=== PATIENT | female | born 1970 | race Caucasian/White ===

== ENCOUNTER 2017-02-13 15:43 | Observation (INO) ==
[2017-02-13] MEDS ORDERED: Naloxone 0.4 MG/ML INJ IVP PRN (18:20)
[2017-02-13] MEDS ORDERED: Acetaminophen 325 MG TABLET PO PRN (18:20)
--- NOTE | 2017-02-13 18:29 | Internal Med History&Physical ---
Date of Encounter: 02/13/17 Time of Encounter: 18:25 Assessment and Plan (1) Chest pain Current visit: Yes Status: Acute Patient with acute chest pain. For past 2 days. Concerning for angina. Will trend troponins. Plan for cardiac stress test if troponins negative. Observation. Check lipid profile and A1c. Qualifiers: Chest pain type: precordial pain Qualified Code(s): R07.2 - Precordial pain (2) Frequent PVCs Current visit: Yes Status: Acute Patient not on beta contreras. However Heart rate on the lower side of normal. Will consult cardiology for further evaluation and recommendations. (3) Hypertension, essential Current visit: Yes Status: Chronic Continue home medications. Currently controlled (4) Depression Current visit: Yes Status: Chronic Continue Effexor. Qualifiers: Depression Type: unspecified Qualified Code(s): F32.9 - Major depressive disorder, single episode, unspecified (5) Tobacco abuse Current visit: Yes Status: Chronic Patient with chronic tobacco abuse. Does have wheezing on examination today. Will treat with bronchodilators as needed. (6) Congestive heart failure Current visit: Yes Status: Suspected Patient with bilateral lower extremity edema and pedal edema. Will get 2-D echocardiogram. Treat with IV Lasix. No prior diagnosis of CHF patient does have symptoms and chest x-ray findings of condition. Her BNP is low. She may have diastolic dysfunction. Qualifiers: Congestive heart failure type: diastolic Congestive heart failure chronicity: acute on chronic Qualified Code(s): I50.33 - Acute on chronic diastolic (congestive) heart failure (7) CAD (coronary artery disease) Current visit: Yes Status: Chronic Continue aspirin, statin Qualifiers: Coronary Disease-Associated Artery/Lesion type: [place] artery [place] vs. transplanted heart: [place] heart Associated angina: with stable angina Qualified Code(s): I25.118 - Atherosclerotic heart disease of [place] coronary artery with other forms of angina pectoris Internal Medicine - H&P: HPI Chief complaint: Chest pain Admitted From: Emergency Dept Plans for Post Hospital Care: Home History of present illness: Ms. 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 Pain is located in the center part of the chest and she she also feels like she is having frequent PVCs. She does have shortness of breath especially when she lies down. She also has been experiencing increased swelling in her lower extremities. 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 Since then she has been chest pain-free. Presently her chest pain has subsided and in severity and intensity but she feels that it may be coming on intermittently. Patient is also a chronic smoker and experiences some wheezing occasionally but has never been diagnosed with COPD. Past Med Surg Social Fam HX - Past Medical History Attestation: Yes The following information was validated with the patient. Source: patient, old records reviewed Medical history: hyperlipidemia, hypertension Psychiatric history: bipolar, depression - Past Surgical History Surgical History: , cholecystectomy - Social History Smoking Status: Current every day smoker Packs per day: 1.5 Smokeless Tobacco Status: No Alcohol use: none Drug use: none - Family History Mother Living Status: Still Living Hx Family Cardiac Disorders: No Hx Family Respiratory Disorders: No Hx Family Cancer: Yes Hx Family GI Disorders: Yes Hx Family Endocrine Disorder: No Hx Family Neuromuscular Disorders: No Hx Family Neurologic Disorders: No Hx Family HEENT Disorders: No Hx Family Autoimmune Disorders: No Father Living Status: Hx Family Cardiac Disorders: Yes (CABG) Hx Family Respiratory Disorders: No Hx Family Cancer: No Hx Family GI Disorders: No Hx Family Endocrine Disorder: Yes (DM) Hx Family Neuromuscular Disorders: No Hx Family Neurologic Disorders: No Hx Family HEENT Disorders: No Hx Family Autoimmune Disorders: No Internal Medicine - H&P: Meds Aspirin 81 mg PO DAILY 01/22/15 [History] Potassium Chloride [Klor-Con Sprinkle] 10 meq PO TID 01/22/15 [History] Atorvastatin [Lipitor] 40 mg PO HS #90 tablet 05/07/15 [Rx] Chlorthalidone [Chlorthalidone] 1 tab PO DAILY 05/09/15 [History] Lisinopril [Zestril] 10 mg PO DAILY 11/15/15 [History] Magnesium Oxide [Magnesium] 400 mg PO DAILY 11/15/15 [History] Torsemide [Demadex] 20 mg PO BID 11/15/15 [History] Venlafaxine HCl [Venlafaxine HCl ER] 75 mg PO DAILY 11/15/15 [History] 3 Allergy/AdvReac Type Severity Reaction Status Date / Time bupropion [From Wellbutrin] Allergy Hives Verified 02/13/17 13:21 nitrofurantoin Allergy Swelling Verified 02/13/17 13:21 [From Macrobid] of Lip/Tongue/Throat Sulfa (Sulfonamide Allergy Hives Verified 02/13/17 13:21 Antibiotics) All Systems PM: A 10-system review of systems was performed and is negative for pertinent findings except as documented above in the HPI. - Constitutional Constitutional: no chills, no fever(s), no night sweats - EENT Eyes: no change in vision, no discharge, no pain, no photophobia Ears: no ear discharge, no ear pain, no tinnitus Nose, mouth and throat: no dysphagia, no nasal discharge, no neck pain, no sore throat - Cardiovascular Cardiovascular ROS IM: chest pain, orthopnea, no diaphoresis, no dyspnea, no lightheadedness, no palpitations, no syncope - Respiratory Respiratory: dyspnea, wheezing, no cough, no excessive phlegm production - Gastrointestinal Gastrointestinal: no abdominal pain, no diarrhea, no hematemesis, no hematochezia, no melena, no nausea, no vomiting - Genitourinary Genitourinary: no change in urinary stream, no dysuria, no flank pain, no hematuria - Musculoskeletal Musculoskeletal ROS IM: no numbness, no tingling - Integumentary Integumentary IM: no rash, no unusual bruising - Neurological Neurological ROS: no confusion, no convulsions, no focal weakness, no numbness, no tingling, no tremor(s) - Constitutional Vitals: Temp Pulse Resp BP Pulse Ox 97.6 F 58 18 131/68 95 02/13/17 18:05 02/13/17 18:05 02/13/17 18:05 02/13/17 18:05 02/13/17 18:05 General appearance: Present: cooperative, mild distress, A&O X 3, morbidly obese , pleasant, answers questions appropriately - Eye Eye exam: Present: EOMI, PERRL - Neck Neck exam general surgery: Present: supple, trachea midline. Absent: lymphadenopathy - Respiratory Respiratory exam: Present: wheezes (Bilateral). Absent: accessory muscle use, rales, rhonchi - Cardiovascular Cardiovascular exam: Present: RRR, +S1, +S2. Absent: diastolic murmur, gallop, rubs, systolic murmur - GI/Abdominal GI/Abdominal exam: Present: normal bowel sounds, soft, no peritoneal signs. Absent: distended, tenderness - Extremities Exam Extremities exam: Present: pedal edema (Bilateral pitting), warm, radial pulses palpable and symmetrical. Absent: calf tenderness, cyanotic - Neurological Exam Neurological exam: Present: CN II-XII intact, oriented X3, no focal deficits. Absent: facial droop, speech deficit - Skin Skin exam: Present: dry, intact Internal Med - H&P Results - Labs Labs: Sodium 135, potassium 3.8, BNP 19, creatinine 0.77, WBC 6.5, hemoglobin 13.9, troponin 0.01 - EKG Data -: EKG Interpreted by Myself EKG shows normal: sinus rhythm - EKG Data EKG comments: 02/13/17 19:03 Sinus rhythm with PVCs - Impressions Chest x-ray shows mild interstitial edema
[2017-02-13] MEDS: Furosemide 40 MG/4 ML VIAL IVP SCH (22:40)
[2017-02-14 01:03] LABS: Basophils # 0.1 K/mcL (0.0-0.2); Basophils % 0.9 %; Eosinophils # 0.3 K/mcL (0.0-0.6); Eosinophils % 4.2 %; Hematocrit 39.9 % (35.3-44.9); Hemoglobin 13.8 g/dL (11.5-15.4); Immature Granulocytes % 0.1 % (0-4); Lymphocytes # 3.1 K/mcL (0.6-4.6); Lymphocytes % 44.5 %; Mean Corpuscular HGB Conc 34.6 g/dL (31.6-35.5); Mean Corpuscular Hemoglobin 32.4 pg (28.0-33.3); Mean Corpuscular Volume 93.7 fL (83.0-100.0); Mean Platelet Volume 11.5 fL (9.4-12.4); Monocytes # 0.5 K/mcL (0.0-1.3); Monocytes % 6.8 %; Platelet Count 216 K/mcL (140-400); Red Blood Count 4.26 M/mcL (3.82-4.97); Red Cell Distribution Width 13.5 % (11.5-14.5); Segmented Neutrophils % 43.5 %
[2017-02-14 01:17] LABS: BUN/Creatinine Ratio 24 (6-26); Blood Urea Nitrogen 19 mg/dL (7-20); Calcium 9.6 mg/dL (8.6-10.8); Carbon Dioxide 27 mEq/L (19-29); Chloride 99 mEq/L (98-109); Glucose 129 mg/dL (70-99); Osmolality,Calculated 288 (280-300); Potassium 3.7 mEq/L (3.5-4.5); Sodium 137 mEq/L (136-145); eGFR For African Americans > 60 (> 60); eGFR For Non-African Americans > 60 (> 60)
[2017-02-14 01:18] LABS: Chol/HDL Ratio 6.4 (0-4.9)
[2017-02-14 01:29] LABS: Hemoglobin A1C 5.4 %
[2017-02-14] MEDS ORDERED: Regadenoson 0.4 MG/5 ML SYRINGE IVP ONE (06:07)
[2017-02-14] MEDS ORDERED: Perflutren Lipid Microsphere 1.3 ML in 0.9 % Sodium Chloride 8.7 ML IVP ONE (07:09)
[2017-02-14] MEDS ORDERED: CHLORTHALIDONE PO SCH (09:00)
[2017-02-14] MEDS ORDERED: Venlafaxine XR (24 HR) 75 MG CAP.ER.24H PO SCH (09:00)
[2017-02-14] MEDS ORDERED: Magnesium Oxide 400 MG TABLET PO SCH (09:00)
[2017-02-14] MEDS ORDERED: Aspirin 81 MG TAB.CHEW PO SCH (09:00)
--- NOTE | 2017-02-14 09:41 | Cardiology Consult Note ---
Date of Encounter: 02/14/17 Time of Encounter: 09:31 Assessment and Plan (1) Chest pain Status: Acute Atypical chest pain, intermittent unlikely ischemic Substernal pain at rest, short-lived, intermittent x 2days [facility] 2016 demonstrated no disease in coronary arteries Patient is currently managed appropriately for chronic disease EKGs demonstrate frequent PVCs Recommend workup as outpatient with possible holter monitor Cardiology will sign off at this time. Please call for any further questions or recommendations Qualifiers: Chest pain type: unspecified Qualified Code(s): R07.9 - Chest pain, unspecified (2) Frequent PVCs Status: Chronic (3) Congestive heart failure Status: Acute Qualifiers: Congestive heart failure type: diastolic Congestive heart failure chronicity: acute on chronic Qualified Code(s): I50.33 - Acute on chronic diastolic (congestive) heart failure Discussion w patient/family: The assessment and plan as outlined above was discussed with the patient and/or family members who expressed understanding and agreement. All questions were answered. Thank you for involving us in the care of your patient. Please call with any questions. History of Present Illness Consult date: 02/13/17 Requesting physician: Bailey Woodson Consult reason: Frequent PVCs Chief complaint: Chest pain with palpitations History of present illness: Ms. Siegel is a 46 year old female with history or COPD BRETT, LAD Fistula s/p coiling 2005 who presented to [place] ED for chest pain with palpitations of 2 days duration. She describes the chest pain as dull and intermittent, generally lasting a few minutes and then resolving. The pain is associated with palpitations, nausea, shortness of breath, and feelings of lightheadedness. It is not exacerbated by anything, nor is it relieved by anything. She says that she's been experiencing the palpitations intermittently for about 1 month, which has also been associated with orthopnea and PND. She was seen about one month ago at an emergency room where she was told that she had PVCs in a bigeminy pattern. Finally, she states that she has increased swelling in her legs, however it has been worse on the Left for the past month as well. There is no calf pain associated with her leg swelling. She denies fever, chills, sweats, syncope. Significantly, she does admit to drinking two cups of coffee per day and several cans of soda or tea, and she also smokes 1.5ppd. In the ED her EKG showed NSR with frequent PVCs. Troponins negative x 2, CXR shows mild interstitial edema with cardiomegaly. She had a LHC in 2016 that demonstrated no CAD, however it did show an LAD fistula which was subsequently closed via coil at [facility]. Past Med Surg Social Fam HX - Past Medical History Medical history: hyperlipidemia, hypertension Psychiatric history: bipolar, depression - Past Surgical History Surgical History: , cholecystectomy - Social History Smoking Status: Current every day smoker Packs per day: 1.5 Smokeless Tobacco Status: No Alcohol use: none Drug use: none - Family History Mother Living Status: Still Living Hx Family Cardiac Disorders: No Hx Family Respiratory Disorders: No Hx Family Cancer: Yes Hx Family GI Disorders: Yes Hx Family Endocrine Disorder: No Hx Family Neuromuscular Disorders: No Hx Family Neurologic Disorders: No Hx Family HEENT Disorders: No Hx Family Autoimmune Disorders: No Father Living Status: Hx Family Cardiac Disorders: Yes (CABG) Hx Family Respiratory Disorders: No Hx Family Cancer: No Hx Family GI Disorders: No Hx Family Endocrine Disorder: Yes (DM) Hx Family Neuromuscular Disorders: No Hx Family Neurologic Disorders: No Hx Family HEENT Disorders: No Hx Family Autoimmune Disorders: No Medications and Allergies Aspirin 81 mg PO DAILY 01/22/15 [History] Potassium Chloride [Klor-Con Sprinkle] 10 meq PO TID 01/22/15 [History] Atorvastatin [Lipitor] 40 mg PO HS #90 tablet 05/07/15 [Rx] Chlorthalidone 1 tab PO DAILY 05/09/15 [History] Magnesium Oxide [Magnesium] 400 mg PO DAILY 11/15/15 [History] Torsemide [Demadex] 20 mg PO DAILY 11/15/15 [History] Venlafaxine HCl [Venlafaxine HCl ER] 75 mg PO DAILY 11/15/15 [History] Buspirone HCl [Buspar] 10 mg PO BID 02/13/17 [History] Fluticasone Propionate Nasal [Flonase] 2 spr NS DAILY 02/13/17 [History] Lisinopril [Zestril] 40 mg PO DAILY 02/13/17 [History] Metoprolol XL (24 HR) Succ [Toprol Xl] 100 mg PO DAILY 02/13/17 [History] Ondansetron [Zofran] 8 mg PO TID PRN 02/13/17 [History] cloNIDine HCl [CloNIDine HCl] 0.1 mg PO TID 02/13/17 [History] 3 Allergy/AdvReac Type Severity Reaction Status Date / Time bupropion [From Wellbutrin] Allergy Hives Verified 02/13/17 13:21 nitrofurantoin Allergy Swelling Verified 02/13/17 13:21 [From Macrobid] of Lip/Tongue/Throat Sulfa (Sulfonamide Allergy Hives Verified 02/13/17 13:21 Antibiotics) - Constitutional Constitutional: fatigue, stops breathing during sleep, no anorexia, no chills, no daytime sleepiness, no fever(s), no frequent falls, no night sweats, no weakness, no weight gain - EENT Eyes: no blurred vision, no loss of vision - Cardiovascular Cardiovascular: as per HPI, chest pain at rest, dyspnea at rest, radiating jaw, neck or arm pain, leg edema, lightheadedness, orthopnea, palpitations, paroxysmal nocturnal dyspnea, rapid heart rate, no chest pain with exertion, no diaphoresis, no irregular heart rhythm, no syncope - Respiratory Respiratory: cough, dyspnea - Gastrointestinal Gastrointestinal: nausea, no abdominal pain, no constipation, no diarrhea - Genitourinary Genitourinary: no dysuria - Musculoskeletal Musculoskeletal: no abnormal gait, no muscle weakness - Neurological Neurological: no dizziness, no focal weakness, no numbness, no syncope - Psychiatric Psychiatric: anxiety, depression Physical Examination General: Conversant, No Apparent Distress, Other (Morbidly obese) HEENT: Atraumatic, Normocephaly, Mucus Membranes Moist Neck: No JVD, Normal carotid pulses Cardiac: Reg Rate and Rhythm, Normal S1 and S2, No Murmur Lungs: Normal Breath Sounds, No Wheeze, Rales, Rhonchi Neuro: Alert and responsive, No focal deficits noted Abdomen: Soft, Non-Tender Skin: No rashes noted on visualized skin Musculoskeletal: No Chest Wall Tenderness Extremities: No Clubbing, No Cyanosis, Normal Pulses, Other (+1 LE Edema b/l) Results 02/14/17 00:40 02/14/17 00:40 Lab Results 02/13/17 02/14/17 02/14/17 18:54 00:40 00:40 WBC 6.9 Hgb 13.8 Hct 39.9 Plt Count 216 Sodium Potassium Chloride Carbon Dioxide BUN Creatinine Glucose Calcium Troponin I 0.01 0.01 02/14/17 00:40 WBC Hgb Hct Plt Count Sodium 137 Potassium 3.7 Chloride 99 Carbon Dioxide 27 BUN 19 Creatinine 0.78 Glucose 129 H Calcium 9.6 Troponin I - Imaging and Cardiology Chest Xray: report reviewed, image reviewed Echo: pending Cardiac cath: report reviewed - EKG Interpretation EKG results cardiology: personally reviewed, sinus rhythm, other (Frequent PVCs) Consult Discharge Plan - Plan Instructions: Heart Failure (DC), Chest Pain (DC), Chronic Hypertension (DC) Additional Instructions: Follow up with cardiology as scheduled Referrals: Virginia Tena CNP [Primary Care Provider] - 02/20/17 1:00 pm (in 1 week)
[2017-02-14] MEDS: Furosemide 40 MG/4 ML VIAL IVP SCH (09:58)
[2017-02-14 11:25] VITALS: BP 126/60
--- NOTE | 2017-02-14 11:59 | Discharge Summary ---
Date of Encounter: 02/14/17 Time of Encounter: 09:45 - Discharge Diagnosis (1) Chest pain Priority: Primary Status: Resolved Qualifiers: Chest pain type: precordial pain Qualified Code(s): R07.2 - Precordial pain (2) Congestive heart failure Priority: Secondary Status: Acute Qualifiers: Congestive heart failure type: diastolic Congestive heart failure chronicity: acute on chronic Qualified Code(s): I50.33 - Acute on chronic diastolic (congestive) heart failure (3) Frequent PVCs Priority: Secondary Status: Chronic (4) Hypertension, essential Priority: Secondary Status: Chronic (5) Depression Priority: Secondary Status: Chronic Qualifiers: Depression Type: unspecified Qualified Code(s): F32.9 - Major depressive disorder, single episode, unspecified (6) Tobacco abuse Priority: Secondary Status: Chronic (7) CAD (coronary artery disease) Priority: Secondary Status: Chronic Qualifiers: Coronary Disease-Associated Artery/Lesion type: [place] artery [place] vs. transplanted heart: [place] heart Associated angina: with stable angina Qualified Code(s): I25.118 - Atherosclerotic heart disease of [place] coronary artery with other forms of angina pectoris - Discharge Medications Home Medications: Aspirin 81 mg PO DAILY 01/22/15 [History] Potassium Chloride [Klor-Con Sprinkle] 10 meq PO TID 01/22/15 [History] Atorvastatin [Lipitor] 40 mg PO HS #90 tablet 05/07/15 [Rx] Chlorthalidone 1 tab PO DAILY 05/09/15 [History] Magnesium Oxide [Magnesium] 400 mg PO DAILY 11/15/15 [History] Torsemide [Demadex] 20 mg PO DAILY 11/15/15 [History] Venlafaxine HCl [Venlafaxine HCl ER] 75 mg PO DAILY 11/15/15 [History] Buspirone HCl [Buspar] 10 mg PO BID 02/13/17 [History] Fluticasone Propionate Nasal [Flonase] 2 spr NS DAILY 02/13/17 [History] Lisinopril [Zestril] 40 mg PO DAILY 02/13/17 [History] Metoprolol XL (24 HR) Succ [Toprol Xl] 100 mg PO DAILY 02/13/17 [History] Ondansetron [Zofran] 8 mg PO TID PRN 02/13/17 [History] cloNIDine HCl [CloNIDine HCl] 0.1 mg PO TID 02/13/17 [History] Allergies/Adverse Reactions: 3 Allergy/AdvReac Type Severity Reaction Status Date / Time bupropion [From Wellbutrin] Allergy Hives Verified 02/13/17 13:21 nitrofurantoin Allergy Swelling Verified 02/13/17 13:21 [From Macrobid] of Lip/Tongue/Throat Sulfa (Sulfonamide Allergy Hives Verified 02/13/17 13:21 Antibiotics) Procedures/tests Complete & Pending: Procedures Performed prior 72 hours Category Date Time Status EV echocardiogram w enhance Routine Y 02/14/17 19:13 Completed Date of admission: 02/13/17 17:53 Primary care physician: Virginia Tena CNP Consults: 02/13/17 19:17 Consult to Cardiology [CONS] Routine Comment: Consulting Provider: Ryan Altman Reason for Consult: Frequent PVCs; sent by Joe Hart for chest pain Call Completed: No Discharging clinician: Bailey Woodson Anticipated date of discharge: 02/14/17 - Patient Status Disposition: Home, Self-Care Condition: Good Functional capacity at discharge: independent ambulation Overall status at discharge: patient is progressing back to baseline - Discharge Instructions Instructions: Heart Failure (DC), Chest Pain (DC), Chronic Hypertension (DC) Follow Up With: Virginia Tena CNP [Primary Care Provider] - 02/20/17 1:00 pm (in 1 week) Additional Instructions: Follow up with cardiology as scheduled - Diet and Activity Activity: increase activity as tolerated Diet: low fat, low cholesterol, low salt diet Hospital course: Ms. Siegel is a 46 year old female patient who presented to the ER with complaints of chest pain and palpitations with frequent PVCs. She had undergone a cardiac catheterization 2 years back and was found to have a fistula from her mean pulmonary artery to the LAD. This had been treated with coils at [facility] sentences and patient had been doing well. Given her history, she was monitored in the hospital and her troponins were trended. Cardiology was consulted. They evaluated the patient and recommended no further cardiac workup as her troponins were normal. Patient continued to have PVCs here. She does take metoprolol at home which she can continue and she is also set up for outpatient Holter monitor next week. She is advised to follow-up with cardiology for further management. She is currently medically stable for discharge. - Time Spent with Patient Total time spent providing and/or coordinating discharge services: Less than 30 minutes (25 min) - Constitutional Vitals: Temp Pulse Resp BP Pulse Ox 97.7 F 64 16 126/60 95 02/14/17 11:17 12 11:17 02/14/17 11:17 02/14/17 11:17 02/14/17 11:17 General appearance: Present: cooperative, A&O X 3, morbidly obese, pleasant, no acute distress, answers questions appropriately - Neck Neck exam general surgery: Present: supple, trachea midline. Absent: lymphadenopathy - Respiratory Respiratory exam: Present: CTAB. Absent: accessory muscle use, rales, rhonchi, wheezes - Cardiovascular Cardiovascular exam: Present: RRR, +S1, +S2. Absent: diastolic murmur, gallop, rubs, systolic murmur - GI/Abdominal GI/Abdominal exam: Present: normal bowel sounds, soft, no peritoneal signs. Absent: distended, tenderness - Extremities Exam Extremities exam: Present: pedal edema, warm, radial pulses palpable and symmetrical. Absent: calf tenderness, cyanotic - Neurological Exam Neurological exam: Present: CN II-XII intact, oriented X3, no focal deficits. Absent: facial droop, speech deficit - Skin Skin exam: Present: dry, intact
== END 2017-02-14 12:43 | disposition home or self-care (01) ==
LOC: 3BNU
PROVIDERS: ADMIT Internal Medicine; ATTEND Internal Medicine